=== PATIENT | female | born 1980 | race Caucasian/White ===

== ENCOUNTER 2017-06-01 13:42 | Outpatient (CLI) | payer BC ==
[2017-06-01 14:15] LABS: APPEARANCE,URINE Clear (CLEAR); COLOR,URINE Yellow (YELLOW); OCCULT BLOOD,URINE 2+ (NEGATIVE); PH URINE 5.5 (5.0 - 8.0); UROBILINOGEN URINE 0.2 Eu (0.2-1.0)
--- NOTE | 2017-06-01 14:46 | Diagnostic Imaging Report ---
NITIN NELSON [facility] [address] [facility] [address] [id number] Report Submission Date: Jun 01, 2017 2:43:28 PM CDT Patient Study Name: PALAK DAWSON Date: Jun 01, 2017 2:13:34 PM CDT Modality Type: DX Gender: F Description: ABDOMEN : 82 Institution: [facility] Physician: NITIN NELSON 1 view abdomen Clinical history: CONSTIPATION X 5 YEARS Findings: Examination of the abdomen single AP view demonstrates gas and stool in the colon. There is no evidence of obstruction. Properitoneal fat lines are preserved. Visualized lung bases are clear. There no unusual intraabdominal calcifications. Impression: 1. Negative abdomen. Electronically signed on Jun 01, 2017 2:43:28 PM CDT by: Brett LOPEZ
--- NOTE | 2017-06-02 06:37 | Diagnostic Imaging Report ---
NITIN NELSON [facility] [address] [facility] [address] [address] Report Submission Date: Jun 01, 2017 2:43:28 PM CDT Patient Study Name: PALAK DAWSON Date: Jun 01, 2017 2:13:34 PM CDT Modality Type: DX Gender: F Description: ABDOMEN : 82 Institution: [facility] Physician: NITIN NELSON 1 view abdomen Clinical history: CONSTIPATION X 5 YEARS Findings: Examination of the abdomen single AP view demonstrates gas and stool in the colon. There is no evidence of obstruction. Properitoneal fat lines are preserved. Visualized lung bases are clear. There no unusual intraabdominal calcifications. Impression: 1. Negative abdomen. Electronically signed on Jun 01, 2017 2:43:28 PM CDT by: Brett LOPEZ
== END 2017-06-01 14:00 ==
LOC: LAB 13:42
PROVIDERS: ATTEND Family Medicine
DX: K59.00 Constipation, unspecified (principal); R82.90 Unspecified abnormal findings in urine
CPT/HCPCS: 36415; 74018; 81002; 84443; 87086

== ENCOUNTER 2017-07-06 07:50 | Day surgery (SDC) | payer BC ==
--- NOTE | 2017-07-07 11:02 | GI Report ---
REFERRING PHYSICIAN: Dr. Gail Hou DENTURE MODEL MAKER: Alexey Ring MD PROCEDURE MEDICATION: Propofol as per anesthesia. INDICATIONS: Patient is a 36-year-old woman who has had increasing difficulty passing stools. 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 A sister has had ovarian cancer. Patient has had small caliber stools and change in stools and, again, with the history of major previous surgery. She is not a diabetic at present. She is referred for the above indications. PROCEDURE PERFORMED: Colonoscopy with polypectomy. PROCEDURE: An [employer] video colonoscope was advanced to the rectum. Prep was fair. There still was a little bit of residual dark fluid. The colonoscope was slowly advanced all the way to the appendiceal orifice. The terminal ileum looks normal. No evidence of Crohn's disease. On slow withdrawal, the cecum, ascending colon, and transverse colon with redundancy but no obvious intraluminal lesions noted. The descending colon and sigmoid, again, redundancy. No obvious intraluminal lesions were noted. On the retroflexion of the rectum, there was about a 3 mm to 4 mm sessile polyp within about 3 cm of the anal verge on straight view that was resected with electrocautery and submitted to pathology. Patient tolerated the procedure well. FINDINGS: 1. Rectal polyp removed. 2. An atonic redundant colon. RECOMMENDATIONS: 1. Would add MiraLAX daily. 2. Increase fiber in the diet. 3. If no improvement, a promotility agent like Linzess would be a consideration. 4. Follow up on the colon within 5 years pending the pathology. cc: Dr. Gail LOPEZ
== END 2017-07-06 07:52 ==
LOC: OPSURG 07:50
PROVIDERS: ATTEND Internal Medicine Gastroenterology
DX: D12.8 Benign neoplasm of rectum (principal); K59.00 Constipation, unspecified; Z80.41 Family history of malignant neoplasm of ovary
CPT/HCPCS: J2001; J2704; J7120; 45385; S1016

== ENCOUNTER 2017-07-28 08:22 | Outpatient (CLI) | payer BC ==
[2017-07-28 09:06] LABS: eGFR (African) > 60; eGFR (Non-African) > 60
== END 2017-07-28 08:23 ==
LOC: LAB 08:22
PROVIDERS: ATTEND Physician Assistant
DX: R53.83 Other fatigue (principal); M79.89 Other specified soft tissue disorders
CPT/HCPCS: 36415; 80053; 82306